=== PATIENT | female | born 1980 ===

== ENCOUNTER 2023-06-24 05:14 | Day surgery (SDC) | payer OTHER ==
[2023-06-23 10:06] LABS: HEMATOCRIT 37.3 % (36.0-45.00); HEMOGLOBIN 12.3 g/dL (12.0-15.00); MEAN CELL VOLUME 90.1 fL (80.00-100.00); MEAN CORPUSCULAR HEMOGLOBIN 29.8 pg (27.00-32.0); PLATELET COUNT 475 K/uL (150-450); RED BLOOD COUNT 4.14 M/uL (4.00-6.00); RED CELL DISTRIBUTION WIDTH 13.5 % (11.5-14.5)
[~2023-06-24] VITALS: Ht 157.5 cm; Wt 89.8 kg
[~2023-06-24 05:14] MED LIST: DOLOGESIC 500-1 EACH PO; TYLENOL ARTHRI650 MG PO
[2023-06-24] MEDS ORDERED: PERCOCET 5-3251 EACH PO (15:13)
[2023-06-24] MEDS ORDERED: CEFADROXIL500 MG PO (15:13)
[2023-06-24] MEDS ORDERED: ELIQUIS2.5 MG PO (15:13)
== END 2023-06-24 21:00 | disposition home or self-care (01) ==
LOC: CIR.AMB 05:14
PROVIDERS: ATTEND Orthopaedic Surgery
DX: S82.261A Displaced segmental fracture of shaft of right tibia, initial encounter for closed fracture (principal); S82.51XA Displaced fracture of medial malleolus of right tibia, initial encounter for closed fracture; S80.11XA Contusion of right lower leg, initial encounter; Z20.822 Contact with and (suspected) exposure to COVID-19
CPT/HCPCS: 27759; 27792; 20902; L8699